=== PATIENT | male | born 1980 | race African-American/Black ===

== ENCOUNTER 2017-04-07 21:51 | Emergency (ER) | payer BC ==
--- NOTE | 2017-04-07 22:08 | UC ---
HPI Febrile Illness - HPI Summary HPI Summary: 36 YEAR MALE PRESENTS WITH COMPLAINS OF SINUS PRESSURE, FEVER, CHILLS AND HEADACHE. - History of Current Complaint Time Seen by Provider: 04/07/17 22:07 Hx Obtained From: Patient Onset/Duration: Started Hours Ago Timing: Constant Initial Severity: Moderate Current Severity: Moderate Pain Scale Used: 0-10 Numeric - 6 - Allergy/Home Medications Allergies/Adverse Reactions: Allergies Allergy/AdvReac Type Severity Reaction Status Date / Time Penicillins [PCN] Allergy Rash Verified 04/07/17 22:19 PMH/Surg Hx/FS Hx/Imm Hx Previously Healthy: Yes Endocrine/Hematology History: Denies: Hx Diabetes, Hx Thyroid Disease Cardiovascular History: Reports: Hx Hypertension Respiratory History: Denies: Hx Asthma, Hx Chronic Obstructive Pulmonary Disease (COPD), Hx Lung Cancer GI History: Denies: Hx Ulcer Neurological History: Denies: Hx Transient Ischemic Attacks (TIA) Psychiatric History: Denies: Hx Depression - Immunization History Date of Tetanus Vaccine: Unknown Infectious Disease History: Denies: Hx Clostridium Difficile, Hx Hepatitis, Hx Human Immunodeficiency Virus (HIV), Hx of Known/Suspected MRSA, Hx Shingles, Hx Tuberculosis, Hx Known/ Suspected VRE, Hx Known/Suspected VRSA, History Other Infectious Disease - Family History Known Family History: Positive: Hypertension Family History: NON CONTRIBUTORY - Social History Alcohol Use: Occasionally Hx Substance Use: No Substance Use Type: Reports: Marijuana Substance Use Comment - Amount & Last Used: Occasionally Hx Tobacco Use: Yes Smoking Status (MU): Light Every Day Tobacco Smoker Type: Cigarettes Amount Used/How Often: 3/4 ppd Length of Time of Smoking/Using Tobacco: 20 years Have You Smoked in the Last Year: Yes Review of Systems Constitutional: Chills, Fatigue Skin: Negative Eyes: Negative ENT: Sore Throat, Nasal Discharge, Sinus Congestion, Sinus Pain/Tenderness Respiratory: Negative Cardiovascular: Negative Gastrointestinal: Negative Genitourinary: Negative Motor: Negative Neurovascular: Negative Musculoskeletal: Negative Neurological: Negative Psychological: Negative All Other Systems Reviewed And Are Negative: Yes Physical Exam Triage Information Reviewed: Yes Vital Signs Reviewed: Yes Eye Exam: Normal ENT Exam: Normal Dental Exam: Normal Neck exam: Normal Neck: Positive: 1 Respiratory Exam: Normal Cardiovascular Exam: Normal Abdominal Exam: Normal Musculoskeletal Exam: Normal Neurological Exam: Normal Psychological Exam: Normal Skin Exam: Normal Course/Dx - Diagnoses Clinic Provider Diagnoses: SINUSITIS Discharge - Discharge Plan Condition: Stable Disposition: HOME Prescriptions: Azithromyxin KIZZY (NF) [Z-Kizzy (Zithromax) 250 mg tabs #6] 2 tab PO .TODAY, THEN 1 DAILY #6 tab LoraTADine TAB(NF) [Claritin 10 MG TAB(NF)] 10 mg PO DAILY #30 tab guaiFENesin/CODIEN 100MG-10MG* [Robitussin AC 100Mg-10Mg*] 5 ml PO Q8H PRN #120 udc MDD 15 PRN Reason: Cough Patient Education Materials: Sinusitis (ED), Fever in Adults (ED) Forms: *Work Release Referrals: No Primary Care Phys,NOPCP [Primary Care Provider] -
[2017-04-07 22:19] VITALS: BP 130/64
[2017-04-07] MEDS ORDERED: Azithromycin TAB* 250 MG PO ONE (22:45)
[2017-04-07] MEDS ORDERED: LoraTADine TAB(NF) 10 MG TAB (AUTOSUB to CETIRIZINE) PO ONE (22:45)
[2017-04-07] MEDS ORDERED: GuaiFENesin DM* 5 ML UDC PO ONE ×2 (22:45→22:50)
[2017-04-07] MEDS ORDERED: guaiFENesin LIQ* 100 MG/5 ML UDC ONE (22:51)
[2017-04-07] MEDS ORDERED: guaiFENesin LIQ* 100 MG/5 ML UDC PO ONE (22:52)
== END 2017-04-07 23:07 | disposition home or self-care (01) ==
LOC: UCEAST 21:51
DX: J32.9 Chronic sinusitis, unspecified (principal); Z88.0 Allergy status to penicillin; I10 Essential (primary) hypertension; F12.90 Cannabis use, unspecified, uncomplicated; F17.210 Nicotine dependence, cigarettes, uncomplicated
CPT/HCPCS: 87502; 99212; A9270-GY; G0463

== ENCOUNTER 2017-05-02 06:24 | Emergency (ER) | payer BC ==
[2017-05-02] MEDS ORDERED: Ketorolac INJ* 60 MG/2 ML VIAL IM ONE (07:14)
--- NOTE | 2017-05-02 08:07 | RAD ---
HISTORY: Left elbow pain, status post fall COMPARISONS: None VIEWS: 2, Frontal and lateral views of the left elbow FINDINGS: BONE DENSITY: Normal. BONES: There is no displaced fracture. JOINTS: There is no arthropathy. There is no posterior supracondylar fat pad to suggest a joint effusion. ALIGNMENT: There is no dislocation. SOFT TISSUES: Unremarkable. OTHER FINDINGS: None. IMPRESSION: NO ACUTE OSSEOUS INJURY. IF SYMPTOMS PERSIST, RECOMMEND REPEAT IMAGING.
--- NOTE | 2017-05-02 08:08 | RAD ---
HISTORY: right elbow pain, status post fall COMPARISONS: None VIEWS: 2, Frontal and lateral views of the right elbow FINDINGS: BONE DENSITY: Normal. BONES: There is no displaced fracture. JOINTS: There is no arthropathy. There is no posterior supracondylar fat pad to suggest a joint effusion. ALIGNMENT: There is no dislocation. SOFT TISSUES: Unremarkable. OTHER FINDINGS: None. IMPRESSION: NO ACUTE OSSEOUS INJURY. IF SYMPTOMS PERSIST, RECOMMEND REPEAT IMAGING.
--- NOTE | 2017-05-02 08:09 | RAD ---
HISTORY: Bilateral shoulder pain, status post fall COMPARISONS: None VIEWS: 8, Frontal internal rotation, external rotation, outlet, and axillary views of the left shoulder and of the right shoulder FINDINGS: Right: BONE DENSITY: Normal. BONES: There is no displaced fracture. JOINTS: There is no arthropathy. ALIGNMENT: There is no dislocation. The alignment is anatomic. SOFT TISSUES: Unremarkable. Left: BONE DENSITY: Normal. BONES: There is no displaced fracture. JOINTS: There is no arthropathy. ALIGNMENT: There is no dislocation. The alignment is anatomic. SOFT TISSUES: Unremarkable. OTHER FINDINGS: None. IMPRESSION: NO ACUTE OSSEOUS INJURY BILATERALLY. IF SYMPTOMS PERSIST, RECOMMEND REPEAT IMAGING.
[2017-05-02 09:20] VITALS: BP 142/86
--- NOTE | 2017-05-03 18:35 | ED ---
Kenya Kaur Thomas, scribed for Georges Rico MD on 05/02/17 at 0715 . Upper Extremity Pain - HPI Summary HPI Summary: The pt is a 36 y/o M presenting to the ED c/o R shoulder pain s/p an accidental fall that occurred yesterday at 23:00. The pt rates the pain 6/10. The pain is aggravated by movement and is alleviated by nothing. The patient has treated the pain with nothing MOTEL MAID. Pt additionally c/o L elbow pain. Pt denies any other complaints at this time. PMHx: HTN. PSHx: none. SHx: current smoker, occasional alcohol use. - History of Current Complaint Chief Complaint: EDExtremityUpper Stated Complaint: SHOULER INJURY Hx Obtained From: Patient Onset/Duration: Started Days Ago - fall yesterday at 23:00, Still Present Timing: Constant Severity Currently: Moderate Pain Location: Shoulder - R, Elbow - L Aggravating Factor(s): Movement Alleviating Factor(s): Nothing Associated Signs & Symptoms: Positive: Negative - Allergies/Home Medications Allergies/Adverse Reactions: Allergies Allergy/AdvReac Type Severity Reaction Status Date / Time Penicillins [PCN] Allergy Rash Verified 05/02/17 06:28 PMH/Surg Hx/FS Hx/Imm Hx Previously Healthy: No Endocrine/Hematology History: Denies: Hx Diabetes, Hx Thyroid Disease Cardiovascular History: Reports: Hx Hypertension Respiratory History: Denies: Hx Asthma, Hx Chronic Obstructive Pulmonary Disease (COPD), Hx Lung Cancer GI History: Denies: Hx Ulcer Neurological History: Denies: Hx Transient Ischemic Attacks (TIA) Psychiatric History: Denies: Hx Depression - Surgical History Surgery Procedure, Year, and Place: None. - Immunization History Date of Tetanus Vaccine: Unknown Infectious Disease History: No Infectious Disease History: Denies: Hx Clostridium Difficile, Hx Hepatitis, Hx Human Immunodeficiency Virus (HIV), Hx of Known/Suspected MRSA, Hx Shingles, Hx Tuberculosis, Hx Known/ Suspected VRE, Hx Known/Suspected VRSA, History Other Infectious Disease, Traveled Outside the [place] in Last 30 Days - Family History Known Family History: Positive: Hypertension - Social History Alcohol Use: Occasionally Hx Substance Use: Yes Substance Use Type: Reports: Marijuana Substance Use Comment - Amount & Last Used: Occasionally Hx Tobacco Use: Yes Smoking Status (MU): Light Every Day Tobacco Smoker Type: Cigarettes Amount Used/How Often: 3/4 ppd Length of Time of Smoking/Using Tobacco: 20 years Have You Smoked in the Last Year: Yes Review of Systems Negative: Fever Positive: Other - R shoulder pain, L elbow pain All Other Systems Reviewed And Are Negative: Yes Physical Exam - Summary Physical Exam Summary: VITAL SIGNS: Reviewed. GENERAL: Patient is a well-developed and nourished male who is lying comfortable in the stretcher. Patient is not in any acute respiratory distress. HEAD AND FACE: No signs of trauma. No ecchymosis, hematomas or skull depressions. No sinus tenderness. EYES: PERRLA, EOMI x 2, No injected conjunctiva, no nystagmus. EARS: Hearing grossly intact. Ear canals and tympanic membranes are within normal limits. MOUTH: Oropharynx within normal limits. NECK: Supple, trachea is midline, no adenopathy, no JVD, no carotid bruit, no c- spine tenderness, neck with full ROM. CHEST: Symmetric, no tenderness at palpation LUNGS: Clear to auscultation bilaterally. No wheezing or crackles. CVS: Regular rate and rhythm, S1 and S2 present, no murmurs or gallops appreciated. ABDOMEN: Soft, non-tender. No signs of distention. No rebound no guarding, and no masses palpated. Bowel sounds are normal. EXTREMITIES: Decreased ROM in both shoulders, more the right than the left. No hematoma, no ecchymosis, no deformity. Good pulses and good capillary refill. No edema, no cyanosis or clubbing. NEURO: Alert and oriented x 3. No acute neurological deficits. Speech is normal and follows commands. SKIN: Dry and warm Triage Information Reviewed: Yes Vital Signs On Initial Exam: Initial Vitals Temp Pulse Resp BP Pulse Ox 98.5 F 79 18 140/96 96 05/02/17 06:27 05/02/17 06:27 05/02/17 06:27 05/02/17 06:27 05/02/17 06:27 Vital Signs Reviewed: Yes - [place] Coma Scale Coma Scale Total: 15 Diagnostics - Vital Signs Vital Signs Temp Pulse Resp BP Pulse Ox 05/02/17 06:27 98.5 F 79 18 140/96 96 - Laboratory Lab Statement: Any lab studies that have been ordered have been reviewed, and results considered in the medical decision making process. - Radiology Shoulder XR Bilateral Xray Interpretation: No Acute Changes - No acute osseous injury present bilaterally. If symptoms persist, recommend repeat imaging. ED physician has reviewed this report and agrees. Radiology Interpretation Completed By: Radiologist Left Elbow XR Xray Interpretation: No Acute Changes - No acute osseous injury present. If symptoms persist, recommend repeat imaging. ED physician has reviewed this report and agrees. Radiology Interpretation Completed By: Radiologist Right Elbow XR Xray Interpretation: No Acute Changes - No acute osseous injury present. If symptoms persist, recommend repeat imaging. ED physician has reviewed this report and agrees. Radiology Interpretation Completed By: Radiologist Course/Dx - Course Assessment/Plan: The pt is a 36 y/o M presenting to the ED c/o R shoulder pain s /p an accidental fall that occurred yesterday at 23:00. The pt rates the pain 6 /10. The pain is aggravated by movement and is alleviated by nothing. The patient has treated the pain with nothing MOTEL MAID. Pt additionally c/o L elbow pain. Pt denies any other complaints at this time. PMHx: HTN. PSHx: none. SHx: current smoker, occasional alcohol use. The shoulder and elbow X-rays show no fracture of dislocation. The patient was given Toradol for the pain. Since there is no fracture or dislocation, the patient will be discharged with follow up by primary care. The patient is hemodynamically stable and alert and oriented x3. - Diagnoses Differential Diagnosis/HQI/PQRI: Positive: Bursitis, Contusion, Fracture (Closed ), Strain, Sprain Provider Diagnoses: Bilateral shoulder pain Discharge - Discharge Plan Condition: Stable Disposition: HOME Patient Education Materials: Shoulder Pain (ED), Elbow Sprain (ED) Forms: *Work Release Referrals: [facility] [place] [facility]IAN REFERRAL [Outside] - 3 Days Additional Instructions: Follow up with your primary care provider in 3 days. If you do not have one, you can use the [facility] Physician Referral Service to find one and make an appointment. Return to the emergency department for any new or worsening symptoms. The documentation as recorded by the Kenya sinclair Thomas accurately reflects the service I personally performed and the decisions made by , Georges Rico MD.
== END 2017-05-02 09:20 | disposition home or self-care (01) ==
LOC: ED 06:24
DX: M25.511 Pain in right shoulder (principal); M25.512 Pain in left shoulder; M25.522 Pain in left elbow
CPT/HCPCS: 96372; 99282; J1885